=== PATIENT | male | born 1990 | race Caucasian/White ===

== ENCOUNTER 2023-03-24 18:58 | Emergency (ER) | payer OTHER, SELFPAY ==
[2023-03-24 20:15] VITALS: BP 121/72; PULSE 82; RESP 18; TEMP 36.6; O2SAT 98; BMI 25.8
--- NOTE | 2023-03-24 20:19 | ED_ITS ---
HPI - General Adult General Chief complaint: Extremity Problem <TORSTEN Campbell - Last Filed: 03/24/23 20:20> Stated complaint: Thumb Pain/ Hot and Itchy <TORSTEN Campbell - Last Filed: 03/24/23 20:20> Time Seen by Provider: 03/24/23 21:43 <TORSTEN Campbell - Last Filed: 03/24/23 20:20> Source: patient, RN notes reviewed and old records reviewed <Andrea Feldman - Last Filed: 03/24/23 22:04> Mode of arrival: ambulatory <Andrea Feldman - Last Filed: 03/24/23 22:04> Limitations: no limitations <Andrea Feldman - Last Filed: 03/24/23 22:04> History of Present Illness HPI narrative: 32-year-old male past medical history significant for substance abuse presents for evaluation of right thumb pain. Patient reports that his symptoms started yesterday. Denies any injury to the area. 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 He states that the thumb is warm, itchy and painful but he has full range of motion of the His symptoms do not appear to be spreading since yesterday Patient has been at [facility] for the last 30 days for detox <Andrea Feldman - Last Filed: 03/24/23 22:04> Related Data Home medications: Previous Rx's Medication Instructions Recorded cephalexin 500 mg capsule 500 mg PO TID #21 caps 03/24/23 diphenhydramine HCl 25 mg capsule 25 mg PO TID PRN itching #20 caps 03/24/23 (Benadryl) naproxen 500 mg tablet 500 mg PO BID PRN pain #20 tabs 03/24/23 trazodone 50 mg tablet 50 mg PO BEDTIME #30 tabs 03/24/23 <TORSTEN Campbell - Last Filed: 03/24/23 20:20> Allergies/adverse reactions: Allergies Allergy/AdvReac Type Severity Reaction Status Date / Time Penicillins Allergy Severe Hives Verified 03/24/23 20:19 <TORSTEN aCmpbell - Last Filed: 03/24/23 20:20> Review of Systems Constitutional: Constitutional: Denies fever(s) <Andrea Feldman - Last Filed: 03/24/23 22:04> Musculoskeletal: Musculoskeletal: Reports arthralgias and Reports joint swelling <Andrea Feldman Last Filed: 03/24/23 22:04> Integumentary/Breasts: Skin/Breast: Reports erythema <Andrea Feldman - Last Filed: 03/24/23 22:04> PMFSH Social History Social History: Social History Advance Directives: No Advance Directives Information Provided: No <TORSTEN Campbell - Last Filed: 03/24/23 20:20> Physical Exam ED Vital Signs: Vital Signs - 24 hr 03/24/23 20:15 Temperature 98 F Pulse Rate 82 Respiratory Rate 18 Blood Pressure 121/72 Pulse Oximetry 98 Oxygen Delivery Method Room Air BMI result Body Mass Index 25.8 <TORSTEN Campbell - Last Filed: 03/24/23 20:20> Vital Signs - 24 hr 03/24/23 20:15 Temperature 98 F Pulse Rate 82 Respiratory Rate 18 Blood Pressure 121/72 Pulse Oximetry 98 Oxygen Delivery Method Room Air BMI result Body Mass Index 25.8 <Andrea Feldman - Last Filed: 03/24/23 22:04> Const General: healthy appearing, comfortable, no acute distress, alert and awake <Andrea Feldman Last Filed: 03/24/23 22:04> Nutritional Appearance: well nourished <Andrea Feldman - Last Filed: 03/24/23 22:04> Orientation/consciousness: patient oriented x3 <Andrea Feldman Last Filed: 03/24/23 22:04> HENMT Head: Yes normocephalic and Yes atraumatic <Andrea Nieto Last Filed: 03/24/23 22:04> Eyes Eyelids: Yes eyelids normal <Andrea Feldman - Last Filed: 03/24/23 22:04> Conjunctivae: conjunctivae normal <Andrea Feldman - Last Filed: 03/24/23 22:04> Sclerae: sclerae normal <Andrea Nietoy - Last Filed: 03/24/23 22:04> Corneas: corneas normal <Andrea Feldman - Last Filed: 03/24/23 22:04> Pupils: Equal, round and reactive pupils present <Andrea Feldman - Last Filed: 03/24/23 22:04> EOM: EOMs intact bilaterally <Andrea Feldman - Last Filed: 03/24/23 22:04> Neck Neck: Yes full ROM <Andreamark Feldman - Last Filed: 03/24/23 22:04> Resp Effort & Inspection: normal respiratory effort, able to speak in complete sentences and not labored <Andrea Nietoy - Last Filed: 03/24/23 22:04> Neuro General: patient oriented x3 <Andrea Feldman - Last Filed: 03/24/23 22:04> Cranial nerves: Yes CN's II-XII intact bilaterally, Yes Equal, round and reactive pupils present and Yes Bilaterally intact EOM present <Andrea Feldman - Last Filed: 03/24/23 22:04> Cognition (Neuro): normal cognition <Andrea Feldman - Last Filed: 03/24/23 22:04> Extrem Other: Patient has some edema to the right thumb starting at the MCP joint extending distally. No streaking erythema. There is no aortic area. No open wounds or lesions. No paronychia there is increased warmth. Patient has full range motion of oxygen and extension position. <Andrea Feldman - Last Filed: 03/24/23 22:04> Course Course Course Narrative: This is an RME: Additional HPI, ROS, PE not included below will be deferred to primary provider. 32-year-old male presents with he thinks is an allergic reaction, red right thumb that is itchy and warm, started today, worsening. Coming from [facility]. Also requesting refill on Trazadone 50 mg PE erythematous R. thumb Plan- Benadryl <TORSTEN Campbell - Last Filed: 03/24/23 20:20> Reevaluation(s) Reevaluation #1: Patient reports that he is out of his trazodone 50 mg daily any of the abdomen last 2 days. Will give him a 1 month supply <Andrea Feldman - Last Filed: 03/24/23 22:04> Medications Administered Discontinued Medications Generic Name Dose Route Start Last Admin Trade Name Freq PRN Reason Stop Dose Admin Diphenhydramine HCl 50 mg 03/24/23 20:18 03/24/23 21:34 Diphenhydramine Hcl 25 Mg Capsule PO 03/24/23 20:19 50 mg ONCE ONE Administration <TORSTEN Campbell - Last Filed: 03/24/23 20:20> Medications Administered Discontinued Medications Generic Name Dose Route Start Last Admin Trade Name Freq PRN Reason Stop Dose Admin Diphenhydramine HCl 50 mg 03/24/23 20:18 03/24/23 21:34 Diphenhydramine Hcl 25 Mg Capsule PO 03/24/23 20:19 50 mg ONCE ONE Administration <Andrea Feldman - Last Filed: 03/24/23 22:04> Medical Decision Making Medical Decision Making MDM Narrative: 32-year-old male presents for evaluation of redness and pain as well as itching to his right palm. Unclear the exact cause. Did not appear to be gout as involves the MCP and interphalangeal joint of the right 1st finger. No open wounds to suggest trauma to suggest fracture or injury. The patient does have full range of motion. A mesher will cause a localized allergic reaction strict that area. Therefore will treat with cephalexin 2 cover for cellulitis. There is no paronychia warranting drainage. Patient use ibuprofen and cephalexin. May also use Benadryl <Andrea Feldman - Last Filed: 03/24/23 22:04> Differential Diagnosis Cellulitis Gout Dermatitis Allergic reaction <Andrea Feldman - Last Filed: 03/24/23 22:04> Discharge Plan Discharge Clinical Impression: Pain of right thumb <TORSTEN Campbell - Last Filed: 03/24/23 20:20> Patient Disposition: Home, Self-Care <TORSTEN Campbell - Last Filed: 03/24/23 20:20> Instructions: Swollen Joint (ED) <TORSTEN Campbell - Last Filed: 03/24/23 20:20> Additional Instructions: You do not have any broken bones if there was no trauma. There is no open wound or anything to drain I am not sure what would draws and allergic reaction to just or thumb, but you may try Benadryl to see if that helps due to the itching You should also take cephalexin 3 times daily for 7 days to help treat any kind of infection to the finger. Follow-up with your doctor and return for any new or worsening symptoms <TORSTEN Campbell - Last Filed: 03/24/23 20:20> Prescriptions: New cephalexin 500 mg capsule 500 mg PO TID Qty: 21 0RF naproxen 500 mg tablet 500 mg PO BID PRN (Reason: pain) Qty: 20 0RF diphenhydramine HCl [Benadryl] 25 mg capsule 25 mg PO TID PRN (Reason: itching) Qty: 20 0RF trazodone 50 mg tablet 50 mg PO BEDTIME Qty: 30 0RF <TORSTEN Campbell - Last Filed: 03/24/23 20:20>
[2023-03-24] MEDS: diphenhydrAMINE HCL 25 MG CAPSULE 50 MG PO (21:34)
--- NOTE | 2023-03-24 22:30 | PC.NURSE ---
report called to jason Armstrong RN- pt medicated per JAN with benadryl 50mg for right thumb swelling. pt discharged back to [facility] via [facility] facility transport
== END 2023-03-24 22:32 | disposition home or self-care (01) ==
PROVIDERS: Emergency Provider Emergency Medicine
DX: M79.644 Pain in right finger(s) (principal)
CPT/HCPCS: 99282; 99283